=== PATIENT | female | born 1960 | race Caucasian/White ===

== ENCOUNTER → 2024-10-05 | Outpatient (CLI) | payer BC ==
--- NOTE | 2024-10-06 07:35 | MR ---
EXAMINATION TYPE: MRI left knee without IV contrast DATE OF EXAM: 10/05/2024 COMPARISON: Radiographs 09/30/2024 HISTORY: left knee pain for 2 months due to trip/fall. TECHNIQUE: Multiplanar, multisequence imaging of the left knee knee is performed without IV contrast. FINDINGS: MEDIAL MENISCUS: Intact. LATERAL MENISCUS: Partially discoid with increased intrasubstance signal along the body, however ther e is no discrete tear. CRUCIATE LIGAMENTS: Intact anterior cruciate ligament. Marked increased intrasubstance signal through out the posterior cruciate ligament consistent with high-grade sprain/tearing. Meniscofemoral ligamen t is intact. COLLATERAL LIGAMENTS: Intact. EXTENSOR MECHANISM: Mild proximal patellar tendinopathy. Quadriceps tendon is intact. EFFUSION: Mild/moderate joint effusion. POPLITEAL CYST: No popliteal/lerner cyst. CARTILAGE: Mild fibrillation along the patellar apex. Trochlear cartilage is intact. Partial thickness chondral defect along the middle third of the lateral femoral condyle measuring 5 m m. Medial compartment cartilage is intact. BONE MARROW SIGNAL: Negative for acute fracture or marrow replacement. OTHER: No additional significant abnormality is appreciated. IMPRESSION: 1. High-grade sprain/tearing of the posterior cruciate ligament. Intact anterior cruciate ligament. 2. Partially discoid lateral meniscus with increased intrasubstance signal in the body, however there is no discrete tear. 3. Mild patellar and medial compartment chondrosis as above. 4. Mild/moderate joint effusion. 5. Proximal patellar tendinopathy. [facility], , 10/06/2024 7:33 AM
== END | disposition home or self-care (01) ==
LOC: RADMRIMAIN 18:33
PROVIDERS: ATTEND Orthopaedic Surgery
DX: M25.462 Effusion, left knee (principal); M23.301 Other meniscus derangements, unspecified lateral meniscus, left knee